=== PATIENT | male | born 1975 | race African-American/Black ===

== ENCOUNTER 2016-11-11 11:58 | Outpatient (CLI) | payer OTHER ==
--- NOTE | 2016-11-11 13:44 | DIAGNOSTIC IMAGING REPORT ---
PROCEDURE: US ABDOMEN ULTRASOUND-COMPLETE INDICATION: ABD PAIN TECHNIQUE: [place] scale and color Doppler sonographic images of the abdomen were obtained without comparison. COMPARISON: None. FINDINGS: The liver is normal in size, contour, and echotexture. No mass or intrahepatic biliary dilatation. The gallbladder is normal without stones or sludge. The wall is normal thickness measuring 1.6 mm No pericholecystic fluid or Juan sign. The extrahepatic common duct is normal measuring 4.8 mm The visualized pancreas is normal without ductal dilatation or peripancreatic fluid collection. The abdominal aorta is normal in its course and caliber. The retrohepatic inferior vena cava is patent. There is appropriate hepatopetal flow in the portal vein. The right kidney measures 10 cm in length. The left kidney measures 10.9 cm in length. Both kidneys demonstrate normal morphology and cortical thickness without hydronephrosis, cyst, solid mass, or shadowing calculus. Color Doppler imaging demonstrates normal blood flow in each kidney. The spleen is normal in size measuring 6.4 cm in length. There is no perihepatic or perisplenic ascites. IMPRESSION: 1. Normal abdominal ultrasound.
== END 2016-11-11 23:00 ==
LOC: US SRH 11:58
DX: R10.9 Unspecified abdominal pain (principal)

== ENCOUNTER 2016-11-15 10:49 | Outpatient (CLI) | payer OTHER ==
--- NOTE | 2016-11-15 12:33 | DIAGNOSTIC IMAGING REPORT ---
PROCEDURE: XR UPPER GI WITH AIR INDICATION: Abdominal and epigastric pain. TECHNIQUE: Double contrast study. Fluoroscopy time, 4.3 minutes; 2121.98 mGy. 75 fluoroscopic images (including cinefluoroscopy). COMPARISON: None. FINDINGS: Pharyngoesophagus is normal. Moderate gastroesophageal reflux. Mild thickening of the esophageal folds. Mild thickening of the a gastric and duodenal folds. No evidence of ulcer. The rest of the stomach and duodenum are normal. IMPRESSION: 1. Moderate gastroesophageal reflux with mild thickening of the esophageal folds (suggests reflux esophagitis). 2. Mild thickening of the gastric and duodenal folds suggests hyperacidity (gastritis, duodenitis). 3. Findings discussed with [facility] [place].
== END 2016-11-15 23:00 ==
LOC: XR SRH 10:49
DX: K21.9 Gastro-esophageal reflux disease without esophagitis (principal)